=== PATIENT | female | born 1995 | race Caucasian/White ===

== ENCOUNTER 2018-12-16 20:15 | Inpatient (IN) ==
[2018-12-16] MEDS ORDERED: cefTRIAXone SODIUM 1,000 MG/50 ML BAG IV STA (20:52)
[2018-12-16 21:35] LABS: Basophils # (auto) 0.02 K/uL (0-0.2); Basophils % (auto) 0.3 %; Eosinophils # (auto) 0.19 K/uL (0-0.5); Eosinophils % (auto) 2.5 %; Hematocrit (blood only) 34.5 % (37-47); Hemoglobin 11.1 g/dL (12.0-16.0); Immature Granulocytes # (auto) 0.01 K/uL (0.00-0.02); Immature Granulocytes % (auto) 0.1 %; Lymphocytes # (auto) 1.49 K/uL (1.2-3.4); Lymphocytes % (auto) 19.3 %; Mean Corpuscular Hgb Conc 32.2 g/dL (32-36); Mean Corpuscular Volume 84.1 fL (80-100); Mean Platelet Volume 10.3 fL (7.4-10.4); Monocytes # (auto) 0.89 K/uL (0.11-0.59); Monocytes % (auto) 11.5 %; Neutrophils # (auto) 5.14 K/uL (1.4-6.5); Neutrophils % (auto) 66.3 %; Platelet Count 281 K/uL (130-400); RDW Coefficient of Variation 14.8 % (11.5-14.5); White Blood Count 7.74 K/uL (4.8-10.8)
--- NOTE | 2018-12-16 21:47 | Emergency Department Note ---
Entered by Shane Packer acting as a scribe for History of Present Illness General Chief complaint: Infection Stated complaint: INFECTION/SWELLING R ARM Time Seen by Provider: 12/16/18 20:36 Source: patient History of Present Illness Provider complaint: Infection Onset (ago): day(s) 5 Location: upper extremity and right Pain Consistency: + constant Maximum Pain Intensity: 7 Current Pain Intensity: 7 Associated symptoms: no fever/chills The patient is a 23 year old female who presents to the Emergency Room with complaints of worsening redness around her right armpit where she just had an abscess drained yesterday at [facility] in [facility]. When she had the abscess drained the doctor jarod an outline on her arm and told her to go to the ED if the redness were to spread beyond the outline--it has. The abscess first formed about 5 days ago and the pain started shortly after that. She states that the pain now is about the same as before getting it drained but she does note it is more comfortable. When the abscess was drained the doctor at the hospital in [place] told her it was not MRSA. She is currently taking Keflex and Bactrim. She notes that she has never had an abscess like this before. She denies any fever. Home Medications Home Medications Medication Instructions Recorded Confirmed Type Control 1 tab PO DAILY 12/16/18 12/16/18 History Allergies Allergy/AdvReac Type Severity Reaction Status Date / Time No Known Allergies Allergy Unverified 12/16/18 21:29 Past Med/Surg History Medical History No pertinent past medical history Family History Other No pertinent family history in first degree relatives Social History Preferred Language: Moldovan Feels Safe at Home: Yes Smoking Status: Never smoker Review of Systems See HPI for pertinent positives & negatives. and A total of 10 systems reviewed and were otherwise negative Physical Exam Vital Signs Vital Signs - 24 hr 12/16/18 20:18 12/16/18 22:48 Temperature 37 C Temperature Source Oral Sepsis Recent Fever Within 48 Hours No Sepsis New/Unexplained Change in Mental Status No Sepsis Action Taken by Nursing No Action Required Pulse Rate 86 Pulse Rate [Left Finger] 74 Pulse Rhythm Regular Pulse Strength Normal Respiratory Rate 18 18 Respiratory Effort / Characteristics Non-Labored Spontaneous Non-Labored Respiratory Depth Normal Normal Respiratory Pattern Regular Regular Blood Pressure 130/76 Blood Pressure [Left Arm] 126/66 Blood Pressure Mean 94 Blood Pressure Mean [Left Arm] 86 Blood Pressure Position Sitting Pulse Oximetry 99 97 Oxygen Delivery Method Room Air Room Air GENERAL: Patient is in no acute distress. HEENT: No acute trauma, normocephalic atraumatic, mucous membranes moist, no nasal congestion, no scleral icterus. NECK: No stridor, no adenopathy, no meningismus, trachea is midline. LUNGS: Clear to auscultation bilaterally, no wheeze, no rhonchi, breath sounds equal. HEART: Without gallops or rubs, regular rate and rhythm. Subtle systolic murmur. ABDOMEN: Soft, nontender, bowel sounds positive, no hernias, no peritonitis. EXTREMITIES: Packing in place in the right axilla with surrounding erythema extending to the elbow which has surpassed the outlined margins. Warmth present around the area. The area directly around the packing is tender. NVI distally in the LUE. NEUROLOGIC: Oriented x 3, no acute motor or sensory deficits, no focal weakness. SKIN: No rash, no jaundice, no diaphoresis. Course 2039: The patient was evaluated in room C12B, and a complete history and physical examination were performed. 2149: I reviewed the records from [facility] and all results are still pending. 2231: I spoke to Dr. Mick Aguirre who said there is no need for emergent surgery but the patient should be put on IV antibiotics and he will see her tomorrow. 2239: I updated the patient and spoke to her and her mother about the plan to admit her for further evaluation. They both agreed. 2245: I spoke to Dr. Humphreys [facility] Hospitalist about the patient's case and she is going to accept her for further evaluation. Consultations Consultation #1: I spoke to Dr. Mick Aguirre who said there is no need for emergent surgery but the patient should be put on IV antibiotics and he will see her tomorrow. Time: 22:32 Consultation #2: I spoke to Dr. Humphreys [facility] Hospitalist about the patient's case and she is going to accept her for further evaluation. Time: 22:45 Administered Medications Discontinued Medications Ceftriaxone Sodium (Rocephin) 1,000 mg in 50 mls @ 100 mls/hr IV NOW STA Stop: 12/16/18 21:21 Last Infusion: 12/16/18 22:15 Dose: 0 mls/hr Documented by: [id number] Admin: 12/16/18 21:29 Dose: 100 mls/hr Documented by: [id number] Medical Decision Making Differential Diagnosis Differential Diagnosis: Abscess, Cellulitis, Failed outpatient treatment, MRSA, Allergic reaction, and Neurovascular compromise, amongst others. Medical Records Attestation: I reviewed the patient's medical records. Home Medications Current Medication List: was personally reviewed by me Laboratory Data Attestation: I reviewed the patient's lab results. Result diagrams: 12/16/18 20:57 12/16/18 20:57 Lab Results 12/16/18 12/16/18 Range/Units 20:57 20:57 WBC 7.74 (4.8-10.8) K/uL RBC 4.10 L (4.2-5.4) M/uL Hgb 11.1 L (12.0-16.0) g/dL Hct 34.5 L (37-47) % MCV 84.1 (80-100) fL MCH 27.1 (25-34) pg MCHC 32.2 (32-36) g/dL RDW Std Deviation 46.0 (36.4-46.3) fL RDW Coeff of Mehrdad 14.8 H (11.5-14.5) % Plt Count 281 (130-400) K/uL MPV 10.3 (7.4-10.4) fL Immature Gran % (Auto) 0.1 % Neut % (Auto) 66.3 % Lymph % (Auto) 19.3 % [place] % (Auto) 11.5 % Eos % (Auto) 2.5 % Baso % (Auto) 0.3 % Immature Gran # (Auto) 0.01 (0.00-0.02) K/uL Neut # (Auto) 5.14 (1.4-6.5) K/uL Lymph # (Auto) 1.49 (1.2-3.4) K/uL [place] # (Auto) 0.89 H (0.11-0.59) K/uL Eos # (Auto) 0.19 (0-0.5) K/uL Baso # (Auto) 0.02 (0-0.2) K/uL Sodium 140 (136-145) mmol/L Potassium 3.7 (3.5-5.1) mmol/L Chloride 108 H (98-107) mmol/L Carbon Dioxide 21 (21-32) mmol/L Anion Gap 11.0 (3-11) BUN 9 (7-18) mg/dl Creatinine 0.85 (0.6-1.2) mg/dl Est Cr Clr Drug Dosing 91.1 ml/min Est GFR ( Amer) 112.7 Est GFR (Non-Af Amer) 97.3 BUN/Creatinine Ratio 11.0 (10-20) Glucose 100 H (70-99) mg/dl Calcium 9.0 (8.5-10.1) mg/dl Imaging Data Radiologist's Impression: Radiology results as stated below per my review and the radiologist's interpretation: US extremity non-vascular ltd CLINICAL HISTORY: right armpit for abscess COMPARISON STUDY: No previous studies for comparison. FINDINGS: Complex study to evaluate given the absence of prior studies. 3.5 x 3.0 x 1.5 cm complex collection, phlegmon is type process right axilla. This potentially contains a focal surgical clip. IMPRESSION: Complex collection right axilla possibly containing a surgical clip. Maximum measurements are 3.5 x 3.0 x 1.5 cm. The above report was generated using voice recognition software. It may contain grammatical, syntax or spelling errors. Electronically signed by: Anthony Braun M.D. 12/16/2018 9:56 PM Blood Pressure Blood Pressure Findings: Normal blood pressure MDM Narrative There is no leukocytosis or concerning anemia. No significant electrolyte abn ormality or kidney failure. Right axillary ultrasound does show a phlegmon about 3-1/2 cm in size. There was the question of whether there could be a surgical clip present. The patient received IV ceftriaxone and IV vancomycin as antibiotic coverage. I did attempt to obtain information from the hospital in [place], at this point, all culture results are still pending. The patient presents with right axillary pain and worsening redness/erythema despite 2 different antibiotics. She has a phlegmon noted on ultrasound. She is failing outpatient treatment, I do think IV antibiotic's would be appropriate. I did speak to general surgery. I spoke to case management. The on-call hospitalist was consulted. The patient is aware of her findings, I spoke as well to her mother over the phone. Impression & Plan Abscess of right axilla, Right arm cellulitis, Failure of outpatient treatment Discharge Plan Visit Data Chief Complaint: Infection Stated Complaint: INFECTION/SWELLING R ARM ED Provider: Mike Villarreal Discharge Problem: Abscess of right axilla, Right arm cellulitis, Failure of outpatient treatment Patient Disposition: Being Evaluated by Hospitalist Forms Stand Alone Forms: My [facility] Prescriptions Prescriptions: No Action Control 1 tab PO DAILY RF: 0 Referrals Referrals: PCP,NO [Primary Care Provider] - The scribe's documentation has been prepared under my direction and personally reviewed by me in its entirety. I confirm that the note above accurately reflects all work, treatment, procedures, and medical decision making performed by me.
--- NOTE | 2018-12-16 21:57 | Ultrasound Report ---
US extremity non-vascular ltd CLINICAL HISTORY: right armpit for abscess COMPARISON STUDY: No previous studies for comparison. FINDINGS: Complex study to evaluate given the absence of prior studies. 3.5 x 3.0 x 1.5 cm complex co llection, phlegmon is type process right axilla. This potentially contains a focal surgical clip. IMPRESSION: Complex collection right axilla possibly containing a surgical clip. Maximum measurement s are 3.5 x 3.0 x 1.5 cm. The above report was generated using voice recognition software. It may contain grammatical, syntax or spelling errors. Electronically signed by: Anthony Braun M.D. 12/16/2018 9:56 PM
[2018-12-16 22:08] LABS: Creatinine Clr Calc Pharmacy 91.1 ml/min; Est GFR (African American) 112.7; Est GFR (Non-African American) 97.3; Potassium 3.7 mmol/L (3.5-5.1)
[2018-12-16] MEDS ORDERED: VANCOMYCIN HCL 1,000 MG in SODIUM CHLORIDE 0.9% 500 ML IV ONE (22:38)
[2018-12-16] MEDS ORDERED: VANCOMYCIN CONSULT ACTIVE PRN (22:38)
[2018-12-17] MEDS ORDERED: IBUPROFEN 600 MG TAB PO STA (00:13)
[2018-12-17] MEDS ORDERED: VANCOMYCIN CONSULT ACTIVE PRN (01:23)
--- NOTE | 2018-12-17 04:21 | History & Physical Report ---
Date of Service December 17, 2018 Assessment & Plan (1) Abscess of right axilla: Patient afebrile, hemodynamically stable, non-toxic in appearance. Concern for MRSA infection -Admit to medical floor -Follow blood culture results -Monitor area of cellullitis -Vancomycin -Ceftriaxone -Tylenol and Motrin PRN pain and fever -General Surgery consulted from ER - appreciate assistance Present on Admission?: Yes (2) Right arm cellulitis: As above (3) Failure of outpatient treatment: As above F/E/N - Heplock. Monitor electrolytes and replete as needed. Regular diet as tolerated Ppx - low risk for DVT Code -Full Dispo - Admit to floor History of Present Illness Chief Complaint: Right axillary abscess Primary Care Provider: NO PCP 23yo C female with no significant past medical or surgical history presenting with right axillary abscess. Patient was in [place] over the weekend for a gymnastics competition. She developed right axillary pain and swelling. She was seen at the ER in [place] and had I/D with packing. She was discharged home on Bactrim and keflex. She reports compliance with her antibiotics. Area of cellulitis was marked and the patient was instructed to return to the ER should the redness extend beyond the margin. Patient with increased pain,warmth and redness with streaking down the arm. She denies fevers/chills/nausea/abdominal pain/malaise. No additional complaints. ER Course: Ceftriaxone, Vancomycin Allergies Allergy/AdvReac Type Severity Reaction Status Date / Time No Known Allergies Allergy Unverified 12/16/18 21:29 Home Medications Home Medications Medication Instructions Recorded Confirmed Type Control 1 tab PO DAILY 12/16/18 12/16/18 History Past Med/Surg History Medical History No pertinent past medical history Surgical History S/P wisdom tooth extraction Family History Other No pertinent family history in first degree relatives Social History Preferred Language: Hong Konger Communication Ability: Effective Clinical Business Analyst Required: No Beliefs That Will Affect Care: None Current Living Situation Comment: lives in off campus apartment Feels Safe at Home: Yes Safety Concerns: Feels Safe At This Time Smoking Status: Never smoker Hx Alcohol Use: Yes Hx Substance Use: No Review of Systems All systems reviewed & are unremarkable except as noted in HPI & below Physical Exam Vital Signs (Past 24 Hours): Last Vital Signs Temp 36.9 C 12/17/18 01:23 Pulse 71 12/17/18 01:23 Resp 16 12/17/18 01:23 BP 112/68 12/17/18 01:23 Pulse Ox 98 12/17/18 01:23 Physical Exam: General: patient resting comfortably, NAD, non-toxic in appearance, AA&O x 4 Skin: warm, dry, intact, no rashes or lesions HEENT: NC/AT, PERRL, EOMI, anicteric sclera, conjunctiva without injection, external ear normal to inspection and nontender, nares patent, moist mucus membranes, dentition intact, no oropharyngeal lesions, neck supple, trachea midline, no LAD, no thyromegaly, no JVD Heart: +S1/S2, regular, no m/r/g Lungs: equal air entry bilaterally, no rales/rhonchi/wheezes Abd: +BS, soft, NT/ND, no masses/organomegaly/ascites Ext: warm, 2+ pulses in UE/LE bilaterally, no clubbing/cyanosis or edema, right axilla with firm/tender region, warmth/redness of axilla to mid upper arm with mild streaking. Neuro: nonfocal, patient AA&O x 4, speech intact, no facial droop, moving all extremities on command with equal strength 5/5 Results & Data Laboratory Results Lab Results 12/16/18 12/16/18 Range/Units 20:57 20:57 WBC 7.74 (4.8-10.8) K/uL RBC 4.10 L (4.2-5.4) M/uL Hgb 11.1 L (12.0-16.0) g/dL Hct 34.5 L (37-47) % MCV 84.1 (80-100) fL MCH 27.1 (25-34) pg MCHC 32.2 (32-36) g/dL RDW Std Deviation 46.0 (36.4-46.3) fL RDW Coeff of Mehrdad 14.8 H (11.5-14.5) % Plt Count 281 (130-400) K/uL MPV 10.3 (7.4-10.4) fL Immature Gran % (Auto) 0.1 % Neut % (Auto) 66.3 % Lymph % (Auto) 19.3 % [place] % (Auto) 11.5 % Eos % (Auto) 2.5 % Baso % (Auto) 0.3 % Immature Gran # (Auto) 0.01 (0.00-0.02) K/uL Neut # (Auto) 5.14 (1.4-6.5) K/uL Lymph # (Auto) 1.49 (1.2-3.4) K/uL [place] # (Auto) 0.89 H (0.11-0.59) K/uL Eos # (Auto) 0.19 (0-0.5) K/uL Baso # (Auto) 0.02 (0-0.2) K/uL Sodium 140 (136-145) mmol/L Potassium 3.7 (3.5-5.1) mmol/L Chloride 108 H (98-107) mmol/L Carbon Dioxide 21 (21-32) mmol/L Anion Gap 11.0 (3-11) BUN 9 (7-18) mg/dl Creatinine 0.85 (0.6-1.2) mg/dl Est Cr Clr Drug Dosing 91.1 ml/min Est GFR ( Amer) 112.7 Est GFR (Non-Af Amer) 97.3 BUN/Creatinine Ratio 11.0 (10-20) Glucose 100 H (70-99) mg/dl Calcium 9.0 (8.5-10.1) mg/dl Diagnostic Findings US extremity non-vascular ltd CLINICAL HISTORY: right armpit for abscess COMPARISON STUDY: No previous studies for comparison. FINDINGS: Complex study to evaluate given the absence of prior studies. 3.5 x 3.0 x 1.5 cm complex collection, phlegmon is type process right axilla. This potentially contains a focal surgical clip. IMPRESSION: Complex collection right axilla possibly containing a surgical clip. Maximum measurements are 3.5 x 3.0 x 1.5 cm. The above report was generated using voice recognition software. It may contain grammatical, syntax or spelling errors. Electronically signed by: Anthony Braun M.D. 12/16/2018 9:56 PM Dictated: 12/16/18 2154 Transcribed: 12/16/182153 Code Status & VTE Plan Code Status Full
--- NOTE | 2018-12-17 06:26 | Pharmacy Report ---
Pharmacy Abx Initial Consult - Date of Service December 17, 2018 - Pharmacy Dosing Scope Date of Consult: 12/17/18 Consultation requested by: Dr. Sandie Humphreys Pharmacy is consulted to continue IV Vancomycin dosing therapy, order appropriate labs and adjust drug dose/frequency. - Subjective The patient is a 23 year old F admitted on 12/17/18 01:05 with abscess/cellulitis of her R axilla. She was at a gymnastics event in [place] when her symptoms began. She was seen at the ER in [place] and had I/D with packing. She was discharged home on Bactrim and Keflex. The area was marked and she was told to get checked if the redness increased. She presents today with increased redness and spreading of the cellulitis. Dr. Humphreys continued both Vancomycin and Rocephin started in the ED. - Objective Height: 5 ft 5.5 in Weight: 55.6 kg Vital Signs (Past 12hrs): Vital Signs Temp Pulse Pulse Resp BP BP Pulse Ox 12/17/18 01:23 36.9 C 71 16 112/68 98 12/17/18 01:01 66 18 99/53 L 99 12/16/18 22:48 74 18 126/66 97 12/16/18 20:18 37 C 86 18 130/76 99 Lab Results (24hrs): Laboratory Tests (24 Hours) 12/16/18 12/16/18 20:57 20:57 WBC 7.74 Neut # (Auto) 5.14 Creatinine 0.85 Est Cr Clr Drug Dosing 91.1 Micro Results: 12/16/18 20:57 Blood Culture - Pending Blood 12/16/18 21:10 Blood Culture - Pending Blood - Risk Factors for Resistance * Antimicrobial use within the last 90 days: Bactrim and Keflex - Assessment & Plan Assessment 23 year old F with abscess of R axilla Plan * Loading dose: 1000 mg (~18mg/kg) * Maintenance dose: 1000mg IV (~18 mg/kg) every 10 hours * Goal trough level: at least 15 mcg/mL * Trough level ordered prior to 1400 dose on 12/18/18 Pharmacy will continue to follow and will adjust dose/frequency as necessary. Thank you.
[2018-12-17 07:31] LABS: Basophils # (auto) 0.01 K/uL (0-0.2); Basophils % (auto) 0.2 %; Eosinophils # (auto) 0.23 K/uL (0-0.5); Eosinophils % (auto) 3.9 %; Hematocrit (blood only) 31.5 % (37-47); Hemoglobin 10.2 g/dL (12.0-16.0); Immature Granulocytes # (auto) 0.01 K/uL (0.00-0.02); Immature Granulocytes % (auto) 0.2 %; Lymphocytes # (auto) 1.66 K/uL (1.2-3.4); Lymphocytes % (auto) 28.4 %; Mean Corpuscular Hgb Conc 32.4 g/dL (32-36); Mean Corpuscular Volume 82.9 fL (80-100); Mean Platelet Volume 10.4 fL (7.4-10.4); Monocytes # (auto) 0.95 K/uL (0.11-0.59); Monocytes % (auto) 16.2 %; Neutrophils # (auto) 2.99 K/uL (1.4-6.5); Neutrophils % (auto) 51.1 %; Platelet Count 233 K/uL (130-400); RDW Coefficient of Variation 14.8 % (11.5-14.5); RDW Standard Deviation 45.4 fL (36.4-46.3); White Blood Count 5.85 K/uL (4.8-10.8)
[2018-12-17] MEDS: VANCOMYCIN HCL 1,000 MG in SODIUM CHLORIDE 0.9% 250 ML IV SCH ×2 (07:43→18:22)
--- NOTE | 2018-12-17 08:56 | Surgery Consultation ---
Date of Consultation December 17, 2018 Assessment & Plan (1) Abscess of right axilla: Healthy 23-year-old female s/p Incision and drainage of right axillary abscess in [place], presented to [facility] for evaluation of spreading erythema. Patient admitted by medicine Vascular U/S reveals complex collection in right axilla possibly containing a surgical clip. Maximum measurements are 3.5 x 3.0 x 1.5 cm. Patient states that she does not believe that a surgical clip was applied, she states that a biopsy was not taken. Abx per primary service- IV Vanco and IV Ceftriaxone Supervising Physician Co-Signing Physician Notes pnt S&E, labs and imaging reviewed, agree with above. 23 year old female with right axillary abcess s/p I&D at outside hospital in [place], admitted overnight with worsening cellulitis. Feels much better this AM with iv abx, cellulitis improved, can move arm more comfortably. Denies trauma or prior episodes, no biopsy per her report. No contact with cats or ticks. On exam afvss. Right arm with cellulitis retreating from demarcations. Right axillary abscess with I&D, some pus still drainable. Difficult to appreciate underlying collection or not. Continue IV abx CT chest with iv and oral contrast to further assess possible foreign object or phlegmon vs abscess vs suppurative lymphangitis NPO after midnight in case requires surgical drainage (she is hesitant to have area numbed again while awake surgery will follow History of Present Illness Reason for Consultation: Right axillary abscess Attending Physician: Yobani Viera MD History of Present Illness Ms. Siegel is a 23-year-old female who presented to [facility] yesterday evening for expanding cellulitis of previous I & D axillary abscess. Patient was in [place] over the weekend for a gymnastics competition and developed right axilla pain and swelling. Patient was evaluated at a local hospital when abscess was opened, drained, and packed. She was started on Bactrim and Kelfex. Area of cellulitis was marked and patient was instructed to return to ED if redness went beyond marked boundary. Patient states that yesterday morning, the area of redness spread beyond the marked area and she returned to [place] for evaluation. She states that the packing was still in incision and that she was taking outpatient antibiotics as prescribed. She denies having previous abscess. Patient reports that packing was removed in ED yesterday. Currently, patient states that her pain is minimal and is controlled with Motrin. She denies fever or chills. Per patient, the area of redness is greatly improved. WBC within normal limits in ED, vascular U/S reveals complex collection in right axilla possibly containing a surgical clip. Maximum measurements are 3.5 x 3.0 x 1.5 cm. Allergies Allergy/AdvReac Type Severity Reaction Status Date / Time No Known Allergies Allergy Unverified 12/16/18 21:29 Home Medications Home Medications Medication Instructions Recorded Confirmed Type Control 1 tab PO DAILY 12/16/18 12/16/18 History Patient History Medical History No pertinent past medical history Surgical History S/P wisdom tooth extraction Family History Other No pertinent family history in first degree relatives Social History Preferred Language: Tuvaluan Communication Ability: Effective [employer] Required: No Beliefs That Will Affect Care: None Current Living Situation Comment: lives in off campus apartment Feels Safe at Home: Yes Safety Concerns: Feels Safe At This Time Smoking Status: Never smoker Hx Alcohol Use: Yes Hx Substance Use: No Physical Exam Vital Signs (Past 24 Hours): Last Vital Signs Temp 36.6 C 12/17/18 07:07 Pulse 66 12/17/18 07:07 Resp 16 12/17/18 07:07 BP 85/53 L 12/17/18 07:07 Pulse Ox 99 12/17/18 07:07 Skin: + erythema (area of redness has greatly improved, no longer beyond marked boundary) and + incision Results & Data Diagnostic Findings US extremity non-vascular ltd CLINICAL HISTORY: right armpit for abscess COMPARISON STUDY: No previous studies for comparison. FINDINGS: Complex study to evaluate given the absence of prior studies. 3.5 x 3.0 x 1.5 cm complex collection, phlegmon is type process right axilla. This potentially contains a focal surgical clip. IMPRESSION: Complex collection right axilla possibly containing a surgical clip. Maximum measurements are 3.5 x 3.0 x 1.5 cm.
[2018-12-17] MEDS: IBUPROFEN 600 MG TAB PO PRN (09:34)
[2018-12-17] MEDS ORDERED: IOVERSOL 100ml IV PRN (14:46)
--- NOTE | 2018-12-17 15:20 | CT Scan Report ---
CT chest w con CT DOSE: 332.67 mGycm HISTORY: Abscess Right axillary abscess, possible foreign body TECHNIQUE: Multiaxial CT images of the chest were performed following the intravenous administration of contrast. A dose lowering technique was utilized adhering to the principles of ALARA. COMPARISON: Ultrasound 12/17/2017 FINDINGS: Right axillary phlegmon is type collection is noted in the right axilla. There is a 2 mm ai r-containing density localized centrally within this structure which potentially relates to the echog enic focus on ultrasound. Lungs are considered clear. Mediastinal and hilar regions are unremarkable. IMPRESSION: 1. Focal phlegmon is collection high right axilla with a small associated air pocket. Graft 2. No evidence for a radiopaque foreign body. 3. The ultrasound finding potentially relates to this focus of air containment. The above report was generated using voice recognition software. It may contain grammatical, syntax or spelling errors. Electronically signed by: Anthony Braun M.D. 12/17/2018 3:18 PM
--- NOTE | 2018-12-17 15:37 | History & Physical Bridge Note ---
Date of Service December 17, 2018 History & Physical Bridge Note Patient seen and examined today. No fevers or chills. Erythema improving on vancomycin and ceftriaxone. Will get culture results from [facility] and follow with surgery.
[2018-12-17] MEDS: ACETAMINOPHEN 325 MG TAB PO PRN (16:29)
[2018-12-17] MEDS ORDERED: cefTRIAXone SODIUM 1,000 MG in DEXTROSE 5% 50 ML IV SCH (22:00)
[2018-12-18] MEDS: VANCOMYCIN HCL 1,000 MG in SODIUM CHLORIDE 0.9% 250 ML IV SCH ×2 (04:17→13:45)
[2018-12-18] MEDS: IBUPROFEN 600 MG TAB PO PRN ×2 (08:14→17:55)
[2018-12-18 08:40] LABS: Creatinine Clr Calc Pharmacy 99.3 ml/min; Est GFR (African American) 125.1; Est GFR (Non-African American) 107.9
--- NOTE | 2018-12-18 09:04 | Surgery Progress Note ---
Date of Service December 18, 2018 Assessment & Plan (1) Abscess of right axilla: 12/18/2018 CT chest from yesterday-1. Focal phlegmon is collection high right axilla with a small associated air pocket. Graft 2. No evidence for a radiopaque foreign body. 3. The ultrasound finding potentially relates to this focus of air containment. Patient most likely needs additional incision and drainage with debridement. Pt is willing to try this at the bedside. Will discuss with Dr. Barton. 12/17/2018 Healthy 23-year-old female s/p Incision and drainage of right axillary abscess in [place], presented to [facility] for evaluation of spreading erythema. Patient admitted by medicine Vascular U/S reveals complex collection in right axilla possibly containing a surgical clip. Maximum measurements are 3.5 x 3.0 x 1.5 cm. Patient states that she does not believe that a surgical clip was applied, she states that a biopsy was not taken. Abx per primary service- IV Vanco and IV Ceftriaxone Supervising Physician Co-Signing Physician Notes Patient seen and examined, agree with above. Again yesterday showed 23-year-old female with right axillary abscess status post incision and drainage at outside facility. She was admitted with extensive cellulitis and a phlegmon in the right axilla. There is a question of a foreign body seen on ultrasound. A CT scan was performed yesterday that showed phlegmon in the right axilla with no organized abscess in that area. There was no foreign body present on imaging. Her cellulitis is significantly improved and is almost resolved. She still has some tenderness and pain in her right axilla. On exam there is still a small amount of expressible purulence from her original incision and drainage site. We discussed her options to include continued antibiotic therapy versus surgical expiration in the OR versus bedside incision and drainage. Essentially I just need to extend the incision and confirm that there is no deeper abscess pocket. Patient elected for having incision and drainage performed at the bedside. See procedure note for details. The wound was widely drained and packed. There is no evidence of deeper abscess. Recommend wet-to-dry dressing changes twice daily until wound heals. Okay to discharge from surgery standpoint. Follow-up with me in the clinic in 1-2 weeks for a wound check. Return precautions given, call with questions or concerns. Oral antibiotics per primary team. Apparently the patient said cultures from [place] returned MRSA. Subjective Pt reports increased pain at incision site with continued purulent drainage. Afebrile Physical Exam Vital Signs (Past 24 Hours): Last Vital Signs Temp 36.7 C 12/18/18 07:27 Pulse 71 12/18/18 07:27 Resp 16 12/18/18 07:27 BP 110/71 12/18/18 07:27 Pulse Ox 99 12/18/18 07:27 Skin: + erythema (area of redness has greatly improved, no longer beyond marked boundary) and + incision +purulent drainage.
[2018-12-18] MEDS ORDERED: LIDOCAINE/EPINEPHRINE 1% 20 ML VIAL INFIL ONE (12:21)
[2018-12-18] MEDS: ACETAMINOPHEN 325 MG TAB PO PRN (12:39)
--- NOTE | 2018-12-18 13:28 | Hospitalist Progress Note ---
Date of Service December 18, 2018 Assessment & Plan (1) Abscess of right axilla: Had I&D on 12/15 at [facility] in [place], [place]. Culture at that time grew MRSA, sensitive to vanc, Bactrim, tetracycline, linezolid, and levofloxacin. She was on Bactrim on 12/15 until presentation with worsening cellulitis. - Initially on IV vancomycin & ceftriaxone - Stopped ceftriaxone on 12/18 given the culture results that were obtained from [facility] - CT chest wall on 12/17 showed "focal phlegmon is collection high right axilla with a small associated air pocket." - Plan for I&D with general surgery on 12/18 - Can discharge on oral abx if ok by surgery - Will likely need follow up with surgery in 1 week (2) DVT prophylaxis: SCDs & ambulation - Low risk Subjective 23yo F w/ no PMH who presents with right axillary abscess. Feeling more pain directly in the abscess area. Redness has improved though. Reports no fevers/chills, chest pain, shortness of breath, abdominal pain, milena sea, or vomiting. Physical Exam Vital Signs (Past 24 Hours): Last Vital Signs Temp 36.7 C 12/18/18 07:27 Pulse 71 12/18/18 07:27 Resp 16 12/18/18 07:27 BP 110/71 12/18/18 07:27 Pulse Ox 99 12/18/18 07:27 Constitutional: WD/WN, vitals as above Eyes: EOM intact bilaterally; no conjunctival abnormality ENMT: external ear and nose normal, oropharynx normal Neck: trachea midline, no thyromegaly normal visual inspection Respiratory: normal respiratory effort, lungs clear to auscultation no respiratory distress Cardiovascular: RRR, no murmur, no edema Gastrointestinal (Abdomen): Inspection/Auscultation: abdomen normal to inspection; abdomen not distended Musculoskeletal: no cyanosis or clubbing, extremities motor strength 5/5 Skin: no rashes, warm and dry Bandage on right axilla Neurologic: moves all extremities and awake Psychiatric: Orientation: alert, oriented to person and cooperative
[2018-12-18] MEDS ORDERED: VANCOMYCIN TROUGH ONE (13:30)
--- NOTE | 2018-12-18 14:43 | Pharmacy Report ---
Pharmacy Abx Dose Short Note - Date of Service December 18, 2018 - Assessment & Plan Assessment * Ms Siegel is a 23 year old F receiving Vancomycin for treatment of R axilla abscess * Day #3 of antimicrobial therapy. * Anticipate that patient will have another I&D today or tomorrow, prior to discharge. * Micro data from [facility] in [place] shows MRSA (Vanc AMALIA = 2). * Suspect that patient may be discharged on oral antibiotic therapy (Doxycycline, Bactrim, Zyvox). Pt had been taking Bactrim prior. * Vanc level drawn today is subtherapeutic: 11.1 mcg/mL Plan Vancomycin * Increase Vancomycin to 1000 mg IV every 8 hours (~20% increase) * Goal trough level for SSTI, Vanc AMALIA 2: 18 to 20 mcg/mL * If patient remains on vancomycin therapy, will assess another level at steady- state of the new dosing regimen. Pharmacy will continue to follow and will adjust dose/frequency as necessary. Thank you.
[2018-12-18] MEDS ORDERED: MoRPHine SULFATE 4 MG/ML 1 ML CARP\\VIAL IV STA (14:49)
--- NOTE | 2018-12-18 15:34 | Procedure Note ---
Procedure Note Date of Service December 18, 2018 Preprocedure diagnosis right axillary abscess Post procedure diagnosis right axillary abscess Procedure performed incision and drainage of right axillary abscess Written consent was obtained. The right axilla was prepped and draped in standard sterile fashion. Local anesthetic was injected in the in incision site. An elliptical incision was made to encompass prior incision site and deepened down through the subcutaneous tissue. The wound was explored and there was some phlegmon deep but this did not appear to have any fluctuance. I was unable to express any fluid from the area even after incising with a knife. Hemostasis was good. The wound was irrigated. The wound was packed with gauze. Sterile dressing was applied. Patient tolerated without incident.
[2018-12-18] MEDS ORDERED: ONDANSETRON 4 MG TAB PO PRN (16:44)
--- NOTE | 2018-12-18 17:45 | Discharge Summary ---
Date of Service December 18, 2018 Admission HPI Per Admitting Provider 23yo C female with no significant past medical or surgical history presenting with right axillary abscess. Patient was in [place] over the weekend for a gymnastics competition. She developed right axillary pain and swelling. She was seen at the ER in [place] and had I/D with packing. She was discharged home on Bactrim and keflex. She reports compliance with her antibiotics. Area of cellulitis was marked and the patient was instructed to return to the ER should the redness extend beyond the margin. Patient with increased pain,warmth and redness with streaking down the arm. She denies fevers/chills/nausea/abdominal pain/malaise. No additional complaints. ER Course: Ceftriaxone, Vancomycin Principal Diagnosis Axillary abscess Discharge Exam Constitutional WD/WN, vitals as above Eyes EOM intact bilaterally; no conjunctival abnormality ENMT external ear and nose normal, oropharynx normal Neck trachea midline, no thyromegaly normal visual inspection Respiratory normal respiratory effort, lungs clear to auscultation no respiratory distress Cardiovascular RRR, no murmur, no edema Gastrointestinal (Abdomen) Inspection/Auscultation: abdomen normal to inspection; abdomen not distended Musculoskeletal no cyanosis or clubbing, extremities motor strength 5/5 Skin no rashes, warm and dry Neurologic moves all extremities and awake Psychiatric Orientation: alert, oriented to person and cooperative Discharge Data Allergies Allergy/AdvReac Type Severity Reaction Status Date / Time No Known Allergies Allergy Unverified 12/16/18 21:29 Consultations 12/16/18 22:43 ED Decision to Admit Stat 12/17/18 01:23 Consult General Surgery Routine Ordered Studies 12/16/18 20:52 US extremity non-vascular ltd Stat 12/17/18 13:58 CT chest w con Routine Hospital Course (1) Abscess of right axilla: Had I&D on 12/15 at [facility] in [place], [place]. Culture at that time grew MRSA, sensitive to vanc, Bactrim, tetracycline, linezolid, and levofloxacin. She was on Bactrim on 12/15 until presentation with worsening cellulitis. - Initially on IV vancomycin & ceftriaxone - Stopped ceftriaxone on 12/18 given the culture results that were obtained from [facility] - CT chest wall on 12/17 showed "focal phlegmon is collection high right axilla with a small associated air pocket." - I&D with general surgery on 12/18 - Discharged on clindamycin PO with general surgery follow up in <1 week to ensure the area is improving. (2) DVT prophylaxis: SCDs & ambulation - Low risk Total Time Total Time Spent Total Time Spent (In Minutes): 40 Total Time Includes: Examination of the Patient, Discharge Planning, Medication Reconciliation and Communication With Other Providers Discharge Plan Discharge Items Patient Disposition: Home - Self-Care Reason For Visit: CELLULITIS, AXILLARY ABSCESS Discharge Diagnosis: Abscess of the right axilla with surrounding skin infection Discharge Goals: Decrease discomfort, Diagnostic testing, Improve function and Therapeutic intervention Activity: Resume your previous activity Non-emergency contact: Primary Care Provider and Surgeon Call non-emergency contact if: your symptoms worsen, your pain is not controlled and your temperature is above 100.5 Follow-up/Referrals: Domenico Barton DO, KIERAN [Physician] - (Please follow-up with Dr. Barton in the General Surgery clinic in 1 week for incision check. Please call the clinic at [phone] to schedule this follow-up appointment. ) Herminio Hackett MD [Primary Care Provider] - 12/24/18 8:40 am (Please, follow up at [facility] with Dr. Herminio Hackett on MondayDecember 24 at 8:20 am. *If you need to change this appointment, call the office at [phone].) Diet: Regular Addtl Provider Instructions: Ms. Siegel, Jamal were admitted to the hospital with an abscess (pocket of infection) in the right axillary (arm pit) area. You had a drainage of the area in [place] on December 15, but there may have been a small area remaining because the redness and warmth started to spread even on oral antibiotoics. We put you on an IV antibiotic called vancomycin and the redness improved. On December 18, our surgical team re-drained the area and felt they were able to get all the pus out. You will be on antibiotics for another week. We are going to put you on an antibiotic called "clindamycin" which the culture results from [place] indicate the bacteria (MRSA) is sensitive to. You will need to take it 4x/day until it is all gone. You will need to see the surgeons prior to finishin g the course of antibiotics to be sure the area is healing appropriately. Please return to our hospital or a local hospital if the redness starts to return and spread, if you start having fevers (temp > 100.4), the area where they drained the abscess starts draining more or larger amounts of pus, or if you become nauseated, start vomiting, or have other concerning symptoms. If this occurs, you may need to be on IV antibiotics to finish the course of treatment and/or need to see the surgery team again. Prescriptions: New clindamycin HCl 150 mg capsule 450 mg PO Q6H 7 Days Qty: 84 RF: 0 oxycodone-acetaminophen [Percocet] 5-325 mg tablet 1 tab PO Q6H PRN (Reason: pain) Qty: 10 RF: 0 Continued Control 1 tab PO DAILY RF: 0 Stand-Alone Forms: [facility] Discharge Orders: Discharge Order (Routine); Ordered 12/18/18 Ordered By: Yobani Viera Admission Data Admit Date/Time: 12/17/18 01:05 Attending Provider: Yobani Viera Admit Provider: Elvi Humphreys Primary Care Provider: Herminio Hackett Other Providers: Shane Gonsalez ; Mary Carmen He ; Puneet Miranda ; Dante Melvin ; Phil Drummond Jr ; Santiago Garibay ; Anny Cee ; Domenico Barton ; Heriberto Phillips ; Yobani Viera Service: Surgical Services
[2018-12-18] MEDS ORDERED: VANCOMYCIN HCL 1,000 MG in SODIUM CHLORIDE 0.9% 250 ML IV SCH (22:00)
== END 2018-12-18 20:26 | disposition home or self-care (01) | DRG 603 ==
LOC: ED 20:15 → 3W 20:15 → SUATTDRO 12-17 01:05